=== PATIENT | female | born 1965 | race African-American/Black ===

== ENCOUNTER 2021-05-06 04:07 | Emergency (ER) | payer SELFPAY ==
--- NOTE | 2021-05-06 04:20 | NUR ---
Patient was called to be triaged but was not in the waiting room or outside ER.
--- NOTE | 2021-05-06 04:30 | NUR ---
Patient was called to be traigaed but was not present. Patient was not traiged or seen by ERMD.
== END 2021-05-06 04:30 | disposition left against medical advice (07) ==
LOC: ER 04:15
DX: Z53.21 Procedure and treatment not carried out due to patient leaving prior to being seen by health care provider (principal)